=== PATIENT | male | born 1965 | race Caucasian/White ===

== ENCOUNTER 2018-01-08 10:02 | Emergency (ER) | payer OTHER ==
[~2018-01-08] VITALS: Ht 185.4 cm; Wt 111.1 kg
[2018-01-08] MEDS ORDERED: ALBUTEROL/IPRATROPIUM 3 ML NEB NEB ONE (10:45)
[2018-01-08] MEDS ORDERED: LISINOPRIL10 MG PO (12:09)
[2018-01-08 12:37] VITALS: BP 139/79
== END 2018-01-08 11:22 | disposition home or self-care (01) ==
LOC: FSED 10:02
DX: R50.9 Fever, unspecified (principal); R05 Cough; J11.1 Influenza due to unidentified influenza virus with other respiratory manifestations
CPT/HCPCS: 87400; 99282